=== PATIENT | male | born 1960 | race Caucasian/White ===

== ENCOUNTER 2017-06-09 03:07 | Emergency (ER) | payer OTHER ==
[~2017-06-09] VITALS: Ht 175.3 cm; Wt 97.1 kg
[~2017-06-09 03:07] MED LIST: KETO10TA2 PO; LOTREL 5-10 MG1 CAP; METFORMIN HCL500 MG; ORPH100T PO
[2017-06-09] MEDS ORDERED: INVOKANA100 MG (03:16)
[2017-06-09] MEDS ORDERED: JANUMET 50-5001 EACH (03:16)
[2017-06-09] MEDS ORDERED: ATORVASTATIN CA10 MG (03:18)
== END 2017-06-10 00:44 | disposition home or self-care (01) ==
LOC: ER 03:07 → CPU-OBS 03:08 → ER 20:16 → CPU-OBS 06-10 00:44
DX: R07.89 Other chest pain (principal); I10 Essential (primary) hypertension; E11.9 Type 2 diabetes mellitus without complications
CPT/HCPCS: G0378; G0379; 93005; 78452; 93017; A9500; 93306

== ENCOUNTER 2017-08-17 05:41 | Day surgery (SDC) | payer OTHER ==
[~2017-08-17 05:41] MED LIST changes: +ATORVASTATIN CA10 MG; +INVOKANA100 MG; +JANUMET 50-5001 EACH
== END 2017-08-17 17:15 | disposition home or self-care (01) ==
LOC: CIR.AMB 05:41
DX: E65 Localized adiposity (principal); L91.0 Hypertrophic scar; K43.2 Incisional hernia without obstruction or gangrene